=== PATIENT | female | born 1975 | race Caucasian/White ===

== ENCOUNTER 2019-11-24 11:18 | Outpatient (CLI) | payer OTHER, SELFPAY ==
[2019-11-24 22:08] LABS: SARS-CoV-2 RNA PCR Negative
== END 2019-11-24 11:19 | disposition home or self-care (01) ==
LOC: CHSLAB 11:19
PROVIDERS: PCP Internal Medicine; Visit Provider Internal Medicine
DX: Z20.828 Contact with and (suspected) exposure to other viral communicable diseases (principal)
CPT/HCPCS: 87635; C9803; U0003

== ENCOUNTER 2020-03-15 13:13 | Outpatient (CLI) | payer OTHER, SELFPAY ==
[2020-03-16 03:00] LABS: SARS-CoV-2 RNA PCR Negative
== END 2020-03-15 13:14 | disposition home or self-care (01) ==
PROVIDERS: PCP Internal Medicine; Visit Provider Internal Medicine
DX: Z20.828 Contact with and (suspected) exposure to other viral communicable diseases (principal)
CPT/HCPCS: 87081; 87635; 87880; C9803; U0003

== ENCOUNTER 2020-12-13 10:26 | Outpatient (CLI) | payer OTHER, SELFPAY ==
[2020-12-13 10:41] LABS: Add Urine Microscopic? NO; Appearance Urine Clear (Clear); Basophils Percent Auto 1.3 % (0.0-1.0); Bilirubin Urine Negative (Negative); Blood Urine Negative (Negative); Color Urine Light Yellow (Yellow); Eosinophils Absolute Auto 0.22 K/mm3 (0.02-0.50); Eosinophils Percent Auto 2.9 % (1.0-6.0); Glucose Urine UA Negative (Negative); Hematocrit 40.2 % (35.0-49.0); Hemoglobin 12.7 g/dL (12.0-15.0); Immature Granulocyte Absolute 0.02 K/mm3 (0.00-0.00); Immature Granulocyte Percent A 0.3 % (0.0-0.0); Ketones Urine Negative (Negative); Leukocyte Esterase Ur Negative (Negative); Lymphocytes Absolute Auto 2.11 K/mm3 (1.10-4.50); Lymphocytes Percent Auto 27.8 % (18.0-42.0); Mean Corpuscular HGB Conc 31.6 g/dL (32.0-36.0); Mean Corpuscular Hemoglobin 28.2 pg (27.0-31.0); Mean Corpuscular Volume 89.3 fL (78.0-102.0); Mean Platelet Volume 9.8 fl (9.2-11.8); Monocytes Absolute Auto 0.45 K/mm3 (0.10-0.90); Monocytes Percent Auto 5.9 % (2.0-11.0); Neutrophils Absolute Auto 4.7 K/mm3 (1.7-7.2); Neutrophils Percent Auto 61.8 % (50.0-70.0); Nitrate Urine Negative (Negative); Platelet Count Result 413 K/mm3 (150-420); Protein Urine Negative (Negative); Red Cell Distribution Width 13.2 % (11.6-14.4); Specific Grav Ur >= 1.030 (1.010-1.020); Urobilinogen Urine 0.2 mg/dL (0.2-1.0); White Blood Count 7.6 K/mm3 (4.8-10.8)
[2020-12-13 11:35] LABS: Alanine Aminotransferase 21 U/L (14-59); Albumin Level 3.2 g/dL (3.4-5.0); Alkaline Phosphatase 80 U/L (46-116); Anion Gap 8 mmol/L (8-16); Aspartate Amino Transferase < 10 U/L (15-37); Bilirubin,Total 0.5 mg/dL (0.00-1.00); Blood Urea Nitrogen 13 mg/dL (7-18); CRP < 0.5 mg/dL (0.0-0.9); Calcium 8.6 mg/dL (8.5-10.1); Carbon Dioxide 27 mmol/L (21-32); Chloride 107 mmol/L (98-108); Cholesterol 213 mg/dL (0-200); Estimated Glomerular Filt Rate > 60; Glucose 103 mg/dL (70-99); HDL Direct 33 mg/dL (40-60); LDL Cholesterol Calculated 147 mg/dL (<130); Osmolality Calculated 294 mOsm/kg (285-295); Potassium 4.3 mmol/L (3.5-5.1); Sodium 142 mmol/L (136-145); Thyroid Stimulating Hormone 0.37 uIU/mL (0.36-3.74); Total Protein 6.4 g/dL (6.4-8.2); Triglycerides 163 mg/dL (0-150)
[2020-12-16 05:19] LABS: FSH 21.2 mIU/mL (***); LH 13.5 mIU/mL (***)
[2020-12-20 22:28] LABS: Estrogen 203.5 pg/mL
== END 2020-12-13 10:27 | disposition home or self-care (01) ==
LOC: CHSLAB 10:28
PROVIDERS: PCP Internal Medicine; Visit Provider Internal Medicine
DX: Z00.00 Encounter for general adult medical examination without abnormal findings (principal); E03.9 Hypothyroidism, unspecified; N95.1 Menopausal and female climacteric states
CPT/HCPCS: 36415; 80053; 80061; 81003; 82672; 83001; 83002; 84443; 85025; 86140

== ENCOUNTER 2020-12-20 10:54 | Outpatient (CLI) | payer OTHER, SELFPAY ==
[2020-12-20 12:12] LABS: SARS-CoV-2 RNA PCR Positive (Negative)
== END 2020-12-20 10:55 | disposition home or self-care (01) ==
LOC: CHSLAB 10:56
PROVIDERS: PCP Internal Medicine; Visit Provider Internal Medicine
DX: U07.1 COVID-19 (principal); R06.02 Shortness of breath; R05 Cough
CPT/HCPCS: C9803; U0003; U0005

== ENCOUNTER 2021-05-17 12:08 | Outpatient (CLI) | payer OTHER, SELFPAY ==
--- NOTE | ~2021-05-17 | XR_ITS ---
EXAMINATION: XR lumbar spine 2-3V EXAM DATE: 05/17/2021 12:32 INDICATION: Chronic back pain radiating down right leg. TECHNIQUE: Lumber spine frontal, lateral, lateral L5-S1 projections for interpretation. Comparison is made to prior examination from 2019. FINDINGS: There are cholecystectomy clips. Small endplate osteophyte at the L4 superior endplate. Th ere are no acute fractures identified. There is mild lumbar facet arthropathy. The vertebral bodies are aligned in the AP dimension. Vertebral body and disc heights are well-maintained. Sacrum, sacroi liac joints, sacral arcuate lines are intact. Paraspinal soft tissue is unremarkable. IMPRESSION: Mild lumbar facet arthropathy. Reviewed, dictated and finalized at location A. ETICIAN PERMANENT MAKEUP ARTIST
== END 2021-05-17 12:09 | disposition home or self-care (01) ==
LOC: CHSIMG 12:09
PROVIDERS: PCP Internal Medicine; Visit Provider Internal Medicine
DX: M54.9 Dorsalgia, unspecified (principal)
CPT/HCPCS: 72100

== ENCOUNTER 2021-10-19 15:10 | Outpatient (CLI) | payer OTHER, SELFPAY ==
--- NOTE | ~2021-10-19 | XR_ITS ---
XR chest 2V DATE: 10/19/2021 15:42 INDICATION: Dyspnea. Posterior chest pain for 3 days. TECHNIQUE: PA and lateral views COMPARISON: 09/02/2015 2 view chest FINDINGS: Normal heart size. No hilar or mediastinal enlargement. No pulmonary infiltrate or consolidation, pleural effusion or pulmonary vascular congestion or pneumo thorax. Status post cholecystectomy. Included skeletal structures are unremarkable. IMPRESSION: No active cardiac pulmonary disease Status post cholecystectomy Reviewed, dictated and finalized at location A.
[2021-10-19 15:26] LABS: Basophils Absolute Auto 0.12 K/mm3 (0.00-0.10); Basophils Percent Auto 1.3 % (0.0-1.0); Eosinophils Absolute Auto 0.23 K/mm3 (0.02-0.50); Eosinophils Percent Auto 2.4 % (1.0-6.0); Hematocrit 41.5 % (35.0-49.0); Hemoglobin 13.5 g/dL (12.0-15.0); Immature Granulocyte Absolute 0.04 K/mm3 (0.00-0.00); Immature Granulocyte Percent A 0.4 % (0.0-0.0); Lymphocytes Absolute Auto 2.57 K/mm3 (1.10-4.50); Lymphocytes Percent Auto 27.3 % (18.0-42.0); Mean Corpuscular HGB Conc 32.5 g/dL (32.0-36.0); Mean Corpuscular Hemoglobin 29.5 pg (27.0-31.0); Mean Corpuscular Volume 90.6 fL (78.0-102.0); Mean Platelet Volume 10.2 fl (9.2-11.8); Monocytes Percent Auto 5.3 % (2.0-11.0); Neutrophils Percent Auto 63.3 % (50.0-70.0); Platelet Count Result 430 K/mm3 (150-420); Red Blood Count 4.58 M/mm3 (4.20-5.40); Red Cell Distribution Width 13.5 % (11.6-14.4); White Blood Count 9.4 K/mm3 (4.8-10.8)
[2021-10-19 15:35] LABS: Add Urine Microscopic? NO; Appearance Urine Clear (Clear); Bilirubin Urine Negative (Negative); Blood Urine Negative (Negative); Color Urine Yellow (Yellow); Glucose Urine UA Negative (Negative); Ketones Urine Negative (Negative); Leukocyte Esterase Ur Negative (Negative); Nitrate Urine Negative (Negative); Protein Urine Negative (Negative); Specific Grav Ur >= 1.030 (1.010-1.020); Urobilinogen Urine 0.2 mg/dL (0.2-1.0); pH Urine 5.5 (5.0-8.0)
[2021-10-19 15:52] LABS: Alanine Aminotransferase 19 U/L (14-59); Albumin Level 3.2 g/dL (3.4-5.0); Alkaline Phosphatase 93 U/L (46-116); Anion Gap 6 mmol/L (8-16); Aspartate Amino Transferase 13 U/L (15-37); Bilirubin,Total 0.3 mg/dL (0.00-1.00); Blood Urea Nitrogen 15 mg/dL (7-18); CRP < 0.5 mg/dL (0.0-0.9); Calcium 8.4 mg/dL (8.5-10.1); Carbon Dioxide 27 mmol/L (21-32); Chloride 107 mmol/L (98-108); Creatine Kinase 36 U/L (26-192); Glucose 119 mg/dL (70-99); NT Pro B Type Natriuretic Pept 287 pg/mL (0-125); Osmolality Calculated 291 mOsm/kg (285-295); Sodium 140 mmol/L (136-145); Total Protein 7.2 g/dL (6.4-8.2); Troponin I 5.9 ng/L (0.00-60.4)
[2021-10-19 15:55] LABS: Estimated Glomerular Filt Rate > 60
[2021-10-19 15:59] LABS: D Dimer 0.24 mg/L (0.19-0.50)
[2021-10-19 16:54] LABS: Creatine Kinase MB < 0.50 ng/mL (0.00-5.00)
== END 2021-10-19 15:11 | disposition home or self-care (01) ==
LOC: CHSLAB 15:12
PROVIDERS: PCP Internal Medicine; Visit Provider Internal Medicine
DX: R06.00 Dyspnea, unspecified (principal); R07.9 Chest pain, unspecified
CPT/HCPCS: 36415; 71046; 80053; 81003; 82550; 82553; 83880; 84484; 85025; 85380; 86140

== ENCOUNTER 2021-10-26 09:44 | Outpatient (CLI) | payer OTHER, SELFPAY ==
--- NOTE | 2021-10-26 10:18 | ECG_ITS ---
Measurements Intervals [place] Rate: 57 P: 41 [place]: 140 QRS: 34 QRSD: 97 T: 61 QT: 412 QTc: 404 Interpretive Statements SINUS BRADYCARDIA LOW QRS VOLTAGE IN PRECORDIAL LEADS [QRS DEFLECTION < 1.0 mV IN CHEST LEADS] NO PREVIOUS ECG AVAILABLE FOR COMPARISON Electronically Signed On 10-26-2021 14:51:32 CDT by Julio Law M.D.
[2021-10-26 10:38] LABS: Alanine Aminotransferase 13 U/L (14-59); Albumin Level 3.2 g/dL (3.4-5.0); Alkaline Phosphatase 91 U/L (46-116); Anion Gap 4 mmol/L (8-16); Aspartate Amino Transferase 12 U/L (15-37); Bilirubin,Total 0.5 mg/dL (0.00-1.00); Blood Urea Nitrogen 18 mg/dL (7-18); Calcium 9.1 mg/dL (8.5-10.1); Carbon Dioxide 28 mmol/L (21-32); Chloride 105 mmol/L (98-108); Estimated Glomerular Filt Rate > 60; Glucose 97 mg/dL (70-99); NT Pro B Type Natriuretic Pept 59 pg/mL (0-125); Osmolality Calculated 285 mOsm/kg (285-295); Potassium 4.5 mmol/L (3.5-5.1); Sodium 137 mmol/L (136-145); Total Protein 7.2 g/dL (6.4-8.2)
[2021-10-30 15:58] LABS: Thyroid Stimulating Hormone 7.09 uIU/mL (0.36-3.74)
== END 2021-10-26 09:45 | disposition home or self-care (01) ==
LOC: CHSLAB 09:46
PROVIDERS: PCP Internal Medicine; Visit Provider Internal Medicine
DX: R06.00 Dyspnea, unspecified (principal); R07.9 Chest pain, unspecified; R53.83 Other fatigue
CPT/HCPCS: 36415; 80053; 83880; 84443; 93005

== ENCOUNTER 2022-06-14 08:59 | Outpatient (CLI) | payer OTHER, SELFPAY ==
--- NOTE | 2022-06-14 09:17 | ECHO_ITS ---
Patient Info Name: Aniya Sanchez Age: 46 years : 1975 Gender: Female Ht: 63 in Wt: 300 lbs BSA: 2.55 m2 HR: 55 bpm BP: 93 / 76 mmHg Technical Quality: Fair Exam Date: 06/14/2022 9:35 AM Exam Location: [facility] Pulmonary Patient Status: Outpatient Admit Date: 06/14/2022 Staff Ordering Physician: Farooq Foy DO Relay Tester Helper: Susana Adam RDCS Attending Provider: Farooq Foy DO Referring Physician: Law RAZO; Exam Type: CA echo dop color flow w con Study Info Indications R06.09 - Other forms of dyspnea Contrast/Agitated Saline Contrast/Ag. Saline: Definity Amount: 3.00 ml Administered By: Hailey Gill [facility] IV Access: Antecubital Space and Right Site Condition: Site dressing applied, IV removed and No extravasation Summary 1. Left ventricular chamber dimension is mildly enlarged. 2. Definity contrast administered improved wall motion interpretation. 3. Left ventricular systolic function is normal, estimated at 60-65%. 4. The left ventricular diastolic function is normal. 5. E/e' 8 is minimally elevated. 6. Global longitudinal strain is normal at -17.6%. 7. Left atrial chamber dimension is mildly enlarged. 8. There is trace mitral valve regurgitation. 9. No pulmonary hypertension, estimated pulmonary arterial systolic pressure is 26 mmHg. Left Ventricle E/e' 8 is minimally elevated. Global longitudinal strain is normal at -17.6%. Definity contrast administered improved wall motion interpretation. Left ventricular chamber dimension is mildly enlarged. Left ventricular systolic function is normal, estimated at 60-65%. The left ventricular diastolic function is normal. Right Ventricle Right ventricular systolic function is normal and with normal TAPSE 2.4 cm. Right ventricular chamber dimension is normal. Left Atria Left atrial chamber dimension is mildly enlarged. Right Atria Right atrial chamber dimension is normal. Aortic Valve The aortic valve is trileaflet. There is no aortic valve stenosis. There is no aortic valve regurgitation. Pulmonic Valve There is no pulmonic regurgitation. Mitral Valve There is no mitral valve stenosis. There is trace mitral valve regurgitation. Tricuspid Valve There is no tricuspid valve regurgitation. No pulmonary hypertension, estimated pulmonary arterial systolic pressure is 26 mmHg. Pericardium/Pleural There is no pericardial effusion. Inferior Vena Cava Normal inferior vena cava with >50% collapse upon inspiration consistent with normal right atrial pressure, 5 mmHg. Aorta The aortic root size at the sinus of Valsalva is normal. Left Ventricular Outflow Tract Name Value Normal LVOT 2D LVOT Diameter 1.93 cm LVOT Doppler LVOT Peak Gradient 5 mmHg LVOT Mean Gradient 3 mmHg LVOT VTI 26.91 cm LVOT VTI/AV VTI Ratio 0.85 LVOT Stroke Volume 78.60 ml LVOT CO 4.56 l/min LVOT CI
--- NOTE | 2022-06-14 09:17 | EST_ITS ---
Patient Info Name: Aniya Sanchez Age: 46 years : 1975 Gender: Female Ht: 63 in Wt: 300 lbs BSA: 2.55 m2 HR: 48 bpm BP: 119 / 43 mmHg Heart Rhythm: Sinus Rhythm Exam Date: 06/14/2022 10:41 AM Exam Location: [facility] Stress Patient Status: Outpatient Admit Date: 06/14/2022 Staff Ordering Physician: Farooq Foy DO Attending Provider: Farooq Foy DO Exercise Technologist: Samaria Mayberry CT Exercise Physician: Farooq Foy DO Exam Type: CA stress test treadmill Study Info Indications R06.02 - Shortness of breath R07.9 - Chest pain, unspecified An exercise stress test was performed. Summary 1. 1. Negative U[place]ano exercise stress test for ischemic ST changes by ECG criteria. 2. 2. Reduced functional capacity, achieving 6 METs of workload. 3. 3. Appropriate HR response to exercise. 4. 4. Appropriate HR recovery at 1 minute post exercise. 5. 5. No imaging with stress testing. 6. 6. Patient informed of the above results. Protocol: [place] Stress ECG Details Stage: REST Duration (min): 1 min : 21 sec Speed (mph): 0.0 Grade (%): 0 HR (bpm): 50 SBP (mmHg): 119 DBP (mmHg): 43 METS: --- Stage: REST Duration (min): 14 min : 35 sec Speed (mph): 0.0 Grade (%): 0 HR (bpm): 55 SBP (mmHg): 119 DBP (mmHg): 43 METS: --- Stage: STAGE 1 Duration (min): 1 min : 0 sec Speed (mph): 1.7 Grade (%): 10 HR (bpm): 103 SBP (mmHg): 119 DBP (mmHg): 43 METS: --- Stage: STAGE 1 Duration (min): 2 min : 0 sec Speed (mph): 1.7 Grade (%): 10 HR (bpm): 120 SBP (mmHg): 119 DBP (mmHg): 43 METS: --- Stage: STAGE 1 Duration (min): 3 min : 0 sec Speed (mph): 1.7 Grade (%): 10 HR (bpm): 130 SBP (mmHg): 150 DBP (mmHg): 81 METS: --- Stage: STAGE 2 Duration (min): 0 min : 57 sec Speed (mph): 2.5 Grade (%): 12 HR (bpm): 149 SBP (mmHg): 150 DBP (mmHg): 81 METS: --- Stage: RECOVERY Duration (min): 0 min : 2 sec Speed (mph): 1.5 Grade (%): 0 HR (bpm): 152 SBP (mmHg): 150 DBP (mmHg): 81 METS: --- Stage: RECOVERY Duration (min): 1 min : 2 sec Speed (mph): 0.0 Grade (%): 0 HR (bpm): 112 SBP (mmHg): 150 DBP (mmHg): 81 METS: --- Stage: RECOVERY Duration (min): 2 min : 2 sec Speed (mph): 0.0 Grade (%): 0 HR (bpm): 93 SBP (mmHg): 150 DBP (mmHg): 81 METS: --- Stage: RECOVERY Duration (min): 3 min : 2 sec Speed (mph): 0.0 Grade (%): 0 HR (bpm): 74 SBP (mmHg): 133 DBP (mmHg): 80 METS: --- Stage: RECOVERY Duration (min): 3 min : 11 sec Speed (mph): 0.0 Grade (%): 0 HR (bpm): 75 SBP (mmHg): 133 DBP (mmHg): 80 METS: --- Rest HR: 55 bpm Peak HR: 152 bpm Rest Sys BP: 119 mmHg Peak Sys BP: 150 mmHg Max Pred HR: 172 bpm % Max Pred HR: 88 % Target HR: 146 bpm Max RPP: 22,800 bpm*mmHg Yusuf Score:
[2022-06-14] MEDS: PERFLUTREN LIPID MICROSPHERES 1.5 ML VIAL DILUTED TO 10 ML TOTAL VOLUME IV PUSH (10:15)
== END 2022-06-14 09:00 | disposition home or self-care (01) ==
PROVIDERS: PCP Internal Medicine; Visit Provider Internal Medicine Cardiovascular Disease
DX: R07.9 Chest pain, unspecified (principal); R06.09 Other forms of dyspnea
CPT/HCPCS: 93017; C8929; Q9957

== ENCOUNTER 2022-12-15 09:29 | Emergency (ER) | payer OTHER, SELFPAY ==
[2022-12-15 09:29] VITALS: BP 130/87; PULSE 68; RESP 17; TEMP 36.6; O2SAT 97
[2022-12-15 09:34] VITALS: BP 130/81; PULSE 68; RESP 20; TEMP 36.6; O2SAT 97
--- NOTE | 2022-12-15 09:36 | ED.GENADULT ---
HPI - General Adult General Chief complaint: Unspecified Stated complaint: rash Time Seen by Provider: 12/15/22 09:35 Source: patient Mode of arrival: ambulatory Limitations: no limitations History of Present Illness HPI narrative: patient is a 47-year-old female with a rash. Patient was working in the yard and realized that she got into some poison ada. She has generalized itching and rash on the chest in arms and now on the face. Onset (ago): day(s) (1) Location: face, chest and upper extremity Radiation: non-radiation Severity: mild and moderate Quality: burning and sharp Pain Consistency: constant Relieving factors: none Exacerbating factors: none Associated symptoms: denies other symptoms Treatments prior to arrival: none Related Data Home Medications Medication Instructions Recorded Confirmed albuterol sulfate 90 mcg/actuation 2 inh inhalation Q6H 01/07/22 12/15/22 breath activated powder inhaler,sensor ibuprofen 200 mg capsule 200 mg PO Q6H PRN Pain 01/07/22 12/15/22 levothyroxine 150 mcg capsule 150 mcg PO DAILY 01/07/22 12/15/22 cholecalciferol (vitamin D3) 10 10 mcg PO DAILY 06/17/22 12/15/22 mcg (400 unit) capsule Allergies Allergy/AdvReac Type Severity Reaction Status Date / Time doxycycline Allergy Mild Other Verified 06/17/22 15:35 duloxetine Allergy Mild Nausea Verified 06/17/22 15:35 pregabalin [From Lyrica] Allergy Mild Other Verified 06/17/22 15:35 sulfamethoxazole Allergy Mild Other Verified 06/17/22 15:35 [From Bactrim] topiramate Allergy Mild Dizziness Verified 06/17/22 15:35 trimethoprim [From Bactrim] Allergy Mild Other Verified 06/17/22 15:35 Review of Systems Review of Systems: All systems reviewed & are unremarkable except as noted in HPI and below Constitutional: Constitutional: Reports no additional constitutional complaints Eyes: Eyes: Reports no additional eye complaints ENT: Reports system reviewed and no additional complaints, except as documented Cardiovascular: Cardiovascular: Reports no additional cardiovascular complaints Respiratory: Respiratory: Reports no additional respiratory complaints Gastrointestinal: Gastrointestinal: Reports no additional gastrointestinal complaints Genitourinary: Genitourinary: Reports no additional female genitourinary complaints Musculoskeletal: Musculoskeletal: Reports no additional musculoskeletal complaints Integumentary/Breasts: Skin/Breast: Reports system reviewed and no additional complaints, except as docu Neurologic: Reports system reviewed and no additional complaints, except as documented Psychiatric: Psychiatric: Reports no additional psychiatric complaints Endocrine: Endocrine: Reports no additional endocrine complaints Hematologic/Lymphatic: Hematologic/Lymphatic: Reports no additional hematologic/lymphatic complaints Allergic/Immunologic: Allergic/Immunologic: Reports no additional allergic/immunologic complaints PMFSH Past Medical History Medical History Hypothyroidism (08/06/12) Social History Social History Smoking packs per day: 1 Smoking cigarettes per day: 20.0 Years smoked: 31 Smoking pack-years: 31.00 Smoking status: Former smoker Smoking end date: 07/27/19 Exam Const: General: cooperative, healthy appearing and comfortable HENMT: Head: normal to inspection and No palpable skull fracture present Ears: hearing grossly normal bilaterally Face/Nose/Sinus: Normal external nose present Face and sinus: normal facial exam Eyes: General: appearance normal, both eyes and all related structures Visual Bustos: normal visual bustos by confrontation Alignment and Position: alignment normal Neck: Neck: normal visual inspection, full ROM and no lymphadenopathy Chest: Chest palpation & inspection: normal inspection of the chest and normal palpation of entire chest wall Resp:
[2022-12-15] MEDS: methylPREDNISolone SOD SUCC 125 MG VIAL IM (09:48)
--- NOTE | 2022-12-15 10:09 | ED.GENADULT ---
HPI - General Adult General Chief complaint: Skin/Abscess/Foreign Body Stated complaint: rash Time Seen by Provider: 12/15/22 09:35 Source: patient Mode of arrival: ambulatory Limitations: no limitations History of Present Illness Location: face, chest and upper extremity Quality: burning and sharp Relieving factors: none Exacerbating factors: none Associated symptoms: denies other symptoms Treatments prior to arrival: none Related Data Home Medications Medication Instructions Recorded Confirmed albuterol sulfate 90 mcg/actuation 2 inh inhalation Q6H 01/07/22 12/15/22 breath activated powder inhaler,sensor ibuprofen 200 mg capsule 200 mg PO Q6H PRN Pain 01/07/22 12/15/22 levothyroxine 150 mcg capsule 150 mcg PO DAILY 01/07/22 12/15/22 cholecalciferol (vitamin D3) 10 10 mcg PO DAILY 06/17/22 12/15/22 mcg (400 unit) capsule Allergies Allergy/AdvReac Type Severity Reaction Status Date / Time doxycycline Allergy Mild Other Verified 06/17/22 15:35 duloxetine Allergy Mild Nausea Verified 06/17/22 15:35 pregabalin [From Lyrica] Allergy Mild Other Verified 06/17/22 15:35 sulfamethoxazole Allergy Mild Other Verified 06/17/22 15:35 [From Bactrim] topiramate Allergy Mild Dizziness Verified 06/17/22 15:35 trimethoprim [From Bactrim] Allergy Mild Other Verified 06/17/22 15:35 PMFSH Past Medical History Medical History Hypothyroidism (08/06/12) Social History Social History Smoking packs per day: 1 Smoking cigarettes per day: 20.0 Years smoked: 31 Smoking pack-years: 31.00 Smoking status: Former smoker Smoking end date: 07/27/19 Course Vital Signs Vital signs: Vital Signs Temperature 36.6 C 12/15/22 09:34 Pulse Rate 68 12/15/22 09:34 Respiratory Rate 20 12/15/22 09:34 Blood Pressure 130/81 12/15/22 09:34 Pulse Oximetry 97 12/15/22 09:34 Oxygen Delivery Room Air 12/15/22 09:34 Temperature 36.6 C 12/15/22 09:34 Pulse Rate 68 12/15/22 09:34 Respiratory Rate 20 12/15/22 09:34 Blood Pressure 130/81 12/15/22 09:34 Pulse Oximetry 97 12/15/22 09:34 Oxygen Delivery Room Air 12/15/22 09:34 Medical Decision Making Vital Signs Vital Signs: Vital Signs Temperature 36.6 C 12/15/22 09:34 Pulse Rate 68 12/15/22 09:34 Respiratory Rate 20 12/15/22 09:34 Blood Pressure 130/81 12/15/22 09:34 Pulse Oximetry 97 12/15/22 09:34 Oxygen Delivery Room Air 12/15/22 09:34 Temperature 36.6 C 12/15/22 09:34 Pulse Rate 68 12/15/22 09:34 Respiratory Rate 20 12/15/22 09:34 Blood Pressure 130/81 12/15/22 09:34 Pulse Oximetry 97 12/15/22 09:34 Oxygen Delivery Room Air 12/15/22 09:34 Discharge Plan Discharge Clinical Impression: Poison latonya dermatitis Patient Disposition: Home, Self-Care Condition: Stable Instructions: Poison Latonya (ED) Prescriptions: New prednisone 20 mg tablet 20 mg PO DAILY Qty: 3 0RF No Action ibuprofen 200 mg capsule 200 mg PO Q6H PRN (Reason: Pain) levothyroxine 150 mcg capsule 150 mcg PO DAILY albuterol sulfate 90 mcg/actuation aero powdr breath act w/sensor 2 inh inhalation Q6H cholecalciferol (vitamin D3) 10 mcg (400 unit) capsule 10 mcg PO DAILY Follow-up/Referrals: Greyson Etienne MD [Primary Care Provider] - Time of Disposition: 10:06
[2022-12-15 10:33] VITALS: BP 128/83; PULSE 71; RESP 18; TEMP 36.4; O2SAT 100
== END 2022-12-15 10:33 | disposition home or self-care (01) ==
PROVIDERS: Emergency Provider Emergency Medicine; PCP Internal Medicine
DX: L23.7 Allergic contact dermatitis due to plants, except food (principal); E03.9 Hypothyroidism, unspecified; Z79.1 Long term (current) use of non-steroidal anti-inflammatories (NSAID); Z87.891 Personal history of nicotine dependence
CPT/HCPCS: 96372; 99283; J2930

== ENCOUNTER 2022-12-20 07:28 | Emergency (ER) | payer OTHER, SELFPAY ==
[2022-12-20 07:28] VITALS: BP 138/71; PULSE 70; RESP 18; TEMP 36.5; O2SAT 98
[2022-12-20 07:41] VITALS: BP 138/71; PULSE 70; RESP 18; TEMP 36.5; O2SAT 98
--- NOTE | 2022-12-20 07:49 | ED.GENADULT ---
HPI - General Adult General Chief complaint: Upper Respiratory Infection Stated complaint: sore throat Time Seen by Provider: 12/20/22 07:40 Source: patient Mode of arrival: ambulatory Limitations: no limitations History of Present Illness HPI narrative: complains of a sore throat that started 2 days ago. She took Augmentin 875 twice yesterday and then ran out. She has been using Chloraseptic for blood sugars Tylenol and ibuprofen. She has had a little bit of a cough but not really much of 1 at all. Has had some nausea. Denies vomiting. She has a contact dermatitis was seen last week was given prednisone shot 3 pills got better but it still persists. Walking talking seeing hearing okay hurts to swallow she has pain in her right ear and throat. Denies any other pain. Denies any other complaints Related Data Home Medications Medication Instructions Recorded Confirmed ibuprofen 200 mg capsule 200 mg PO Q6H PRN Pain 01/07/22 12/20/22 levothyroxine 200 mcg tablet 200 mcg PO DAILY 12/20/22 12/20/22 Allergies Allergy/AdvReac Type Severity Reaction Status Date / Time doxycycline Allergy Mild Other Verified 12/20/22 07:36 duloxetine Allergy Mild Nausea Verified 12/20/22 07:36 pregabalin [From Lyrica] Allergy Mild Other Verified 12/20/22 07:36 sulfamethoxazole Allergy Mild Other Verified 12/20/22 07:36 [From Bactrim] topiramate Allergy Mild Dizziness Verified 12/20/22 07:36 trimethoprim [From Bactrim] Allergy Mild Other Verified 12/20/22 07:36 Review of Systems Constitutional: Constitutional: Reports fatigue, Denies fever(s) and Denies weakness Eyes: Eyes: Reports no additional eye complaints ENT: Reports as per HPI Cardiovascular: Cardiovascular: Denies chest pain Respiratory: Respiratory: Reports cough Gastrointestinal: Gastrointestinal: Reports no additional gastrointestinal complaints Genitourinary: Genitourinary: Reports no additional female genitourinary complaints Musculoskeletal: Musculoskeletal: Reports no additional musculoskeletal complaints COUNTS INCLUDE 234 BEDS AT THE [facility] Past Medical History Medical History Hypothyroidism (08/06/12) Social History Social History Smoking packs per day: 1 Smoking cigarettes per day: 20.0 Years smoked: 31 Smoking pack-years: 31.00 Smoking status: Former smoker Smoking end date: 07/27/19 Exam Narrative: obese white female mild distress TMs are normal, oropharynx shows exudates the posterior pharynx. Positive anterior lymphadenopathy. Lungs are clear heart is regular rate and rhythm without murmurs gallops rubs abdomen is soft and nontender back is nontender. Extremities no cyanosis clubbing or edema. Skin macular papular rash diffuse erythematous neurological she is alert and oriented motor and sensory grossly intact Course Vital Signs Vital signs: Vital Signs Temperature 36.5 C 12/20/22 07:28 Pulse Rate 70 12/20/22 07:28 Respiratory Rate 18 12/20/22 07:28 Blood Pressure 138/71 12/20/22 07:28 Pulse Oximetry 98 12/20/22 07:28 Oxygen Delivery Room Air 12/20/22 07:28 Temperature 36.5 C 12/20/22 07:41 Pulse Rate 70 12/20/22 07:41 Respiratory Rate 18 12/20/22 07:41 Blood Pressure 138/71 12/20/22 07:41 Pulse Oximetry 98 12/20/22 07:41 Oxygen Delivery Room Air 12/20/22 07:41 Medical Decision Making MDM Narrative Medical decision making narrative: patient was placed in room 1 history and physical were performed she was given Toradol 30 mg IM. Independent Historian: ? Patient Differential Dx includes but not limited to: strep mononucleosis viral pharyngitis Medications were Reviewed:? ? medications reviewed Medications treatments given: Toradol 30 IM Independently Interpreted by me:? External Source Review:?? office records reviewed Echo/MUGA:: 06/14/22 Echo: EF 60-65%, mild LAE, trace MR
[2022-12-20] MEDS: KETOROLAC 30 MG/ML VIAL (*BKC) IM (07:59)
[2022-12-20 08:06] VITALS: BP 138/71; PULSE 70; RESP 18; TEMP 36.5; O2SAT 98
== END 2022-12-20 08:06 | disposition home or self-care (01) ==
LOC: CHSED 08:00
PROVIDERS: Emergency Provider Emergency Medicine; PCP Internal Medicine
DX: J02.9 Acute pharyngitis, unspecified (principal); E03.9 Hypothyroidism, unspecified; Z87.891 Personal history of nicotine dependence; Z79.1 Long term (current) use of non-steroidal anti-inflammatories (NSAID)
CPT/HCPCS: 96372; 99283; J1885

== ENCOUNTER 2024-06-09 14:05 | Outpatient (CLI) | payer OTHER, SELFPAY ==
--- OUTSIDE RECORDS SUMMARY | 2024-06-09 14:56 | XMS_ITS | Clinical Summary ---
Author Organization [facility] Address [address] [place] [address]. [place], [place] [id number] [place] [id number] Care Team Providers Care Port Engineer Name Role Phone Unavailable Primary Care Provider Unavailabl e Social History Tobacco Use Types Packs/Day Years Used Date Smoking Tobacco: Never Assessed Comments Unknown Sex and Gender Information Value Date Recorded Sex Assigned at Not on file Legal Sex Female 8:37 PM CDT Gender Identity Not on file Sexual Orientation Not on file Last Filed Vital Signs Vital Sign Reading Time Taken Comments Blood Pressure 111/75 05/02/2015 3:44 PM RAKE OPERATOR Pulse - - Temperature - - Respiratory Rate - - Oxygen Saturation - - Inhaled Oxygen Concentration - - Weight 122.5 kg (270 lb) 05/02/2015 3:44 PM RAKE OPERATOR Height 154.9 cm (5' 1 ) 05/02/2015 3:44 PM RAKE OPERATOR Body Mass Index 51.02 05/02/2015 3:44 PM RAKE OPERATOR Plan of Treatment Health Maintenance Due Date Last Done Comments Cervical Cancer Screening Pa p Smear (Age 30 to 64) Every 3 Years 1975 Colorectal Cancer Screening Colonoscopy (10 Years) 1975 Annual Physical 1976 Hepatitis C 10/09/1991 DTaP, Tdap and Td Vaccines ( 1 - Tdap) 1992 Hepatitis B Vaccines (1 of 3 - 19+ 3-dose series) 1992 Cervical Cancer Screening Pa p with HPV Testing (Age 30 to 64) Every 5 Years 10/09/2003 Cervical Cancer Screening with HPV 10/09/2003 Mammogram Screening 2013 Zoster Vaccines (1 of 2) 10/09/2023 COVID-19 Vaccine ( - 2023-2 5 season) 2024 Influenza Adult (#1) 2024 Meningococcal B Vaccine Aged Out No l onger eligible based on patient's age to complete this topic Meningococcal Vaccine Aged Out No harpreet fabi eligible based on patient's age to complete this topic Pneumococcal Vaccine: Pediat rics (0 to 5 Years) and At-Risk Patients (6 to 64 Years) Aged Out No longer eligible b ased on patient's age to complete this topic RSV Immunizations Under 20 Months Aged Out No longer eligible based on patient's age to complete this topic
== END 2024-06-09 14:06 | disposition home or self-care (01) ==
PROVIDERS: PCP Internal Medicine; Visit Provider Internal Medicine
DX: Z12.31 Encounter for screening mammogram for malignant neoplasm of breast (principal)
CPT/HCPCS: 99199

== ENCOUNTER 2024-10-05 14:43 | Emergency (ER) | payer OTHER, SELFPAY ==
--- NOTE | ~2024-10-05 | XR_ITS ---
XR toe 1st LT min 2V Ordering provider: Ollie Edwards MD History: . Dropped log on toe yesterday, Bruising/Swelling, IP Joint . Comparison: December 03, 2012 FINDINGS: BONES: Longitudinal fractures seen in the distal phalanx of the left big toe extending to the joint s pace. No significant displacement seen.. JOINT SPACES: Normal. SOFT TISSUES: Soft tissue swelling seen over the distal phalanx of the left big toe. IMPRESSION: Fracture of distal phalanx of the left big toe. Reviewed, dictated and finalized at location A.
[2024-10-05 14:44] VITALS: BP 132/75; PULSE 85; RESP 20; TEMP 36.6; O2SAT 99
--- NOTE | 2024-10-05 14:45 | ED_ITS ---
HPI - Extremity Injury (Lower) General Chief Complaint: Extremity Injury, Lower Stated Complaint: toe pain Time Seen by Provider: 10/05/24 14:45 Source: patient Mode of arrival: ambulatory Limitations: no limitations History of Present Illness HPI Narrative: 48 years old white female came with left big toe injury yesterday. Patient reports a large log fell/rolled on top of her big toe. No other injuries. Related Data Home Medications ?Medication ?Instructions ?Recorded ?Confirmed ?Last Taken ?Type ibuprofen 200 mg capsule 200 mg PO Q6H PRN Pain 01/07/22 12/20/22 Unknown History levothyroxine 200 mcg tablet 200 mcg PO DAILY 12/20/22 12/20/22 Unknown History Allergies Allergy/AdvReac Type Severity Reaction Status Date / Time doxycycline Allergy Mild Other Verified 12/20/22 07:36 duloxetine Allergy Mild Nausea Verified 12/20/22 07:36 pregabalin (From Lyrica) Allergy Mild Other Verified 12/20/22 07:36 sulfamethoxazole (From Allergy Mild Other Verified 12/20/22 07:36 Bactrim) topiramate Allergy Mild Dizziness Verified 12/20/22 07:36 trimethoprim (From Bactrim) Allergy Mild Other Verified 12/20/22 07:36 Review of Systems Review of Systems: All systems reviewed & are unremarkable except as noted in HPI and below PMFSH Past Medical History Medical History Hypothyroidism (08/06/12) Social History Social History Smoking packs per day: 1 Smoking cigarettes per day: 20.0 Years smoked: 31 Smoking pack-years: 31.00 Smoking status: Former smoker Smoking end date: 07/27/19 Exam Narrative: General appearance: Well-developed, well-nourished Skin: Normal color Head: Normocephalic, nontraumatic Vascular: Normal peripheral pulses, normal capillary refill. Musculoskeletal: Left big toe exam reveals diffuse swelling, bruises, 2 mm laceration dorsally, diffusely tender, limited range of motion Neurologic: Alert and oriented ?3, [employer] is normal as tested, no gross motor deficit Course Vital Signs Vital signs: Vital Signs Temperature 36.6 C 10/05/24 14:44 Pulse Rate 85 10/05/24 14:44 Respiratory Rate 20 10/05/24 14:44 Blood Pressure 132/75 10/05/24 14:44 Pulse Oximetry 99 10/05/24 14:44 Oxygen Delivery Room Air 10/05/24 14:44 Temperature 36.6 C 10/05/24 14:44 Pulse Rate 85 10/05/24 14:44 Respiratory Rate 20 10/05/24 14:44 Blood Pressure 132/75 10/05/24 14:44 Pulse Oximetry 99 10/05/24 14:44 Oxygen Delivery Room Air 10/05/24 14:44 MDM - Extremity Injury (Lower) MDM Narrative Medical decision making narrative: differential diagnosis include fracture versus contusion Patient received a tetanus shot X-ray showed fracture distal phalanx Louis-tape, postop shoe, Keflex Follow-up with hoisting pile driving engineer Differential Diagnosis Differential diagnosis: Likely other ( as above) Imaging Data Radiologist's impression: Impressions Toe X-Ray 10/05/24 15:16 IMPRESSION: Fracture of distal phalanx of the left big toe. Critical Care Time Critical Care Time Critical Care Time: No Discharge Plan Discharge Clinical Impression: Fracture of toe of left foot, Laceration Patient Disposition: Home Condition: Stable Instructions: Antibiotic Form, Laceration (DC), Toe Fracture (ED) Additional Instructions: Return if symptoms are worsening , call hoisting pile driving engineer for appointment, take Tylenol , ibuprofen as as needed for aches and pain, continue home medications. keep left foot elevated Patient Language: New Zealander Prescriptions: New cephalexin 500 mg capsule 500 mg PO Q6H 7 Days Qty: 28 0RF No Action levothyroxine 200 mcg tablet 200 mcg PO DAILY amoxicillin-pot clavulanate 875-125 mg tablet 1 tablet PO Q12H 10 Days Qty: 20 0RF prednisone 20 mg tablet 20 mg PO BID 5 Days Qty: 10 0RF ibuprofen 200 mg capsule 200 mg PO Q6H PRN (Reason: Pain) Follow-up/Referrals: Steve Leroy Jr., DPM [Physician] - 10/06/24 Greyson Etienne MD [Primary Care Provider] -
== END 2024-10-05 15:45 | disposition home or self-care (01) ==
PROVIDERS: Emergency Provider Emergency Medicine; PCP Internal Medicine
DX: S92.402A Displaced unspecified fracture of left great toe, initial encounter for closed fracture (principal); E03.9 Hypothyroidism, unspecified; Z87.891 Personal history of nicotine dependence; W22.8XXA Striking against or struck by other objects, initial encounter
CPT/HCPCS: 73660; 99284

== ENCOUNTER 2024-10-20 16:38 | Emergency (ER) | payer OTHER, SELFPAY ==
[2024-10-20 16:44] VITALS: BP 120/82; PULSE 74; RESP 18; TEMP 36.6; O2SAT 95
--- NOTE | 2024-10-20 16:51 | ED.LOWEXIN ---
HPI - Extremity Injury (Lower) General Chief Complaint: Extremity Injury, Lower Stated Complaint: Right Foot Injury Time Seen by Provider: 10/20/24 16:50 Source: patient Mode of arrival: ambulatory Limitations: no limitations History of Present Illness HPI Narrative: 49-year-old female smoker with history of hypothyroidism, recent fracture left leg the toe, presents to the ED with -- right lateral foot abrasion measuring 3 cm. A piece of protruding metal caused the abrasion. -- patient is not up-to-date on tetanus. complaint: foot injury Onset (ago): hour(s) ( 1 hour ago) Injury: Right: foot Place: home Severity: mild Relieving factors: nothing Exacerbating factors: nothing Context: direct blow Other symptoms: none Related Data Home Medications ?Medication ?Instructions ?Recorded ?Confirmed ?Last Taken ?Type ibuprofen 200 mg capsule 200 mg PO Q6H PRN Pain 01/07/22 12/20/22 Unknown History levothyroxine 200 mcg tablet 200 mcg PO DAILY 12/20/22 12/20/22 Unknown History Allergies Allergy/AdvReac Type Severity Reaction Status Date / Time doxycycline Allergy Mild Other Verified 10/20/24 16:41 duloxetine Allergy Mild Nausea Verified 10/20/24 16:41 pregabalin (From Lyrica) Allergy Mild Other Verified 10/20/24 16:41 sulfamethoxazole (From Allergy Mild Other Verified 10/20/24 16:41 Bactrim) topiramate Allergy Mild Dizziness Verified 10/20/24 16:41 trimethoprim (From Bactrim) Allergy Mild Other Verified 10/20/24 16:41 Review of Systems Review of Systems: All systems reviewed & are unremarkable except as noted in HPI and below PMFSH Past Medical History Medical History Hypothyroidism (08/06/12) Social History Social History Smoking packs per day: 1 Smoking cigarettes per day: 20.0 Years smoked: 31 Smoking pack-years: 31.00 Smoking status: Former smoker Smoking end date: 07/27/19 Exam Narrative: Vitals are stable Const: General: no acute distress Nutritional Appearance: well nourished Orientation/consciousness: patient oriented x3 Limitations: no limitations HENMT: Head: normal to inspection Ears: external ears normal Face/Nose/Sinus: Normal external nose present Face and sinus: normal facial exam Mouth: Yes Normal oral and palatal mucosa present Throat: posterior oropharynx normal Eyes: Conjunctivae: conjunctivae normal Pupils: Equal, round and reactive pupils present EOM: EOMs intact bilaterally Direct Ophthalmoscopy: no photophobia Neck: Neck: normal visual inspection and no lymphadenopathy Chest: Chest palpation & inspection: normal inspection of the chest and abnormal inspection of the chest Resp: Effort & Inspection: normal respiratory effort Auscultation: clear to auscultation bilaterally Cardio: Rate: regular rate Rhythm: regular rhythm GI: GI Palp: Yes Soft to palpation Other: no tenderness/rigidity/rebound. : General: Yes no CVA tenderness Back/Spine/Pelvis: Back: no CVA tenderness Skin: General skin exam: normal color Rashes: no rashes Other: Right lateral foot has a 3 cm abrasion Neuro: General: patient oriented x3, moves all extremities, no meningeal signs, no focal motor deficits and CN's II-XI intact bilaterally Speech: normal speech Extrem: General: normal to inspection and no clubbing, cyanosis or edema Psych: Mental Status: mental status grossly normal Affect: normal affect Attitude: cooperative Course Course Emergency Course: right foot abrasion Vital Signs Vital signs: Vital Signs Temperature 36.6 C 10/20/24 16:44 Pulse Rate 74 10/20/24 16:44 Respiratory Rate 18 10/20/24 16:44 Blood Pressure 120/82 10/20/24 16:44 Pulse Oximetry 95 10/20/24 16:44 Oxygen Delivery Room Air 10/20/24 16:44 Temperature 36.6 C 10/20/24 16:44 Pulse Rate 74 10/20/24 16:44 Respiratory Rate 18 10/20/24 16:44 Blood Pressure 120/82 10/20/24 16:44 Pulse Oximetry 95 10/20/24 16:44 Oxygen Delivery Room Air 10/20/24 16:44 MDM - Extremity Injury (Lower) MDM Narrative Medical decision making narrative: right foot abrasion Differential Diagnosis Differential diagnosis: Likely other ( laceration) Discharge Plan Discharge Clinical Impression: Abrasion of foot, right Patient Disposition: Home Condition: Stable Instructions: Antibiotic Form, Abrasion (ED) Patient Language: Guyanese Prescriptions: No Action cephalexin 500 mg capsule 500 mg PO Q6H 7 Days Qty: 28 0RF levothyroxine 200 mcg tablet 200 mcg PO DAILY amoxicillin-pot clavulanate 875-125 mg tablet 1 tablet PO Q12H 10 Days Qty: 20 0RF prednisone 20 mg tablet 20 mg PO BID 5 Days Qty: 10 0RF ibuprofen 200 mg capsule 200 mg PO Q6H PRN (Reason: Pain) Follow-up/Referrals: Greyson Etienne MD [Primary Care Provider] - Time of Disposition: 17:12
[2024-10-20] MEDS: TETANUS,DIPHTHERIA,AC PERTUSSIS ADULT 0.5 ML (ADACEL) IM (17:19)
== END 2024-10-20 17:35 | disposition home or self-care (01) ==
PROVIDERS: Emergency Provider Internal Medicine Critical Care Medicine; PCP Internal Medicine
DX: S90.811A Abrasion, right foot, initial encounter (principal); E03.9 Hypothyroidism, unspecified; Z87.891 Personal history of nicotine dependence; Z23 Encounter for immunization; W22.8XXA Striking against or struck by other objects, initial encounter
CPT/HCPCS: 90471; 90715; 99282

== ENCOUNTER 2024-11-12 06:06 | Emergency (ER) | payer OTHER, SELFPAY ==
--- OUTSIDE RECORDS SUMMARY | 2024-11-12 06:08 | XMS_ITS | Clinical Summary ---
Author Organization [facility] Address [facility] [place] [address] Care Team Providers Care Personal Insurance Advisor Name Role Phone Unavailable Primary Care Provider [...] Comments Blood Pressure 111/75 05/02/2015 3:44 PM MANAGEMENT COORDINATOR Pulse - - Temperature - - Respiratory Rate - - Oxygen Saturation - - Inhaled Oxygen Concentration - - Weight 122.5 kg (270 lb) 05/02/2015 3:44 PM MANAGEMENT COORDINATOR Height 154.9 cm (5' 1) 05/02/2015 3:44 PM MANAGEMENT COORDINATOR Body Mass Index 51.02 05/02/2015 3:44 PM MANAGEMENT COORDINATOR Plan of Treatment Health Maintenance Due Date [...] Screening with HPV 10/09/2003 Mammogram Screening 2013 Pneumococcal Vaccine: 50+ Ye ars (1 of 1 - PCV) 10/09/2023 Zoster Vaccines (1 of 2) 10/09/2023 COVID-19 Vaccine ( - 2023-2 5 season) 2024 Meningococcal B Vaccine Aged Out No l onger eligible based on patient's age to complete this topic Meningococcal Vaccine Aged Out No harpreet fabi eligible based on patient's age to complete this topic RSV Immunizations Under 20 Months Aged Out No longer eligible based on patient's age to complete this topic
[2024-11-12 06:09] VITALS: BP 154/95; PULSE 56; RESP 15; TEMP 37; O2SAT 98
--- NOTE | 2024-11-12 06:17 | ED.SKABFB ---
HPI - Skin/Abscess/Foreign Bdy General Chief complaint: Skin/Abscess/Foreign Body Stated complaint: poison latonya to face Time Seen by Provider: 11/12/24 06:16 Source: patient Mode of arrival: ambulatory Limitations: no limitations History of Present Illness HPI narrative: this is a 49-year-old female with a history of hypothyroidism presents after she got exposed to poison latonya and has some rash around the left but not affecting the eye itself, very itchy and hives around her right arm with no shortness of breath no fever chills no nausea vomiting. complaint: rash Onset (ago): day(s) Location: generalized Severity: mild Related Data Home Medications ?Medication ?Instructions ?Recorded ?Confirmed ?Last Taken ?Type ibuprofen 200 mg capsule 200 mg PO Q6H PRN Pain 01/07/22 12/20/22 Unknown History levothyroxine 200 mcg tablet 200 mcg PO DAILY 12/20/22 12/20/22 Unknown History Allergies Allergy/AdvReac Type Severity Reaction Status Date / Time doxycycline Allergy Mild Other Verified 11/12/24 06:13 duloxetine Allergy Mild Nausea Verified 11/12/24 06:13 pregabalin (From Lyrica) Allergy Mild Other Verified 11/12/24 06:13 sulfamethoxazole (From Allergy Mild Other Verified 11/12/24 06:13 Bactrim) topiramate Allergy Mild Dizziness Verified 11/12/24 06:13 trimethoprim (From Bactrim) Allergy Mild Other Verified 11/12/24 06:13 Review of Systems Review of Systems: All systems reviewed & are unremarkable except as noted in HPI and below PMFSH Past Medical History Medical History Hypothyroidism (08/06/12) Social History Social History Smoking packs per day: 1 Smoking cigarettes per day: 20.0 Years smoked: 31 Smoking pack-years: 31.00 Smoking status: Former smoker Smoking end date: 07/27/19 Exam Const: General: healthy appearing Nutritional Appearance: well nourished Orientation/consciousness: patient oriented x3 Limitations: no limitations HENMT: Other: Urticarial rash around the left Eyes: Pupils: Equal, round and reactive pupils present EOM: EOMs intact bilaterally Neck: Neck: normal visual inspection, no lymphadenopathy and no meningeal signs Chest: Chest palpation & inspection: normal inspection of the chest Resp: Effort & Inspection: normal respiratory effort Auscultation: clear to auscultation bilaterally Cardio: Rate: regular rate Rhythm: regular rhythm GI: Auscultation: normal bowel sounds Skin: Other: urticarial rash around the left eye and around her arms and abdomen Course Course Emergency Course: patient with urticaria rash exposure to poison latonya with itching, received 80mg IM injection of Depo-Medrol. Vital Signs Vital signs: Vital Signs Temperature 37.0 C 11/12/24 06:09 Pulse Rate 56 L 11/12/24 06:09 Respiratory Rate 15 11/12/24 06:09 Blood Pressure 154/95 H 11/12/24 06:09 Pulse Oximetry 98 11/12/24 06:09 Oxygen Delivery Room Air 11/12/24 06:09 Temperature 37.0 C 11/12/24 06:09 Pulse Rate 56 L 11/12/24 06:09 Respiratory Rate 15 11/12/24 06:09 Blood Pressure 154/95 H 11/12/24 06:09 Pulse Oximetry 98 11/12/24 06:09 Oxygen Delivery Room Air 11/12/24 06:09 Critical Care Time Critical Care Time Critical Care Time: No Discharge Plan Discharge Clinical Impression: Poison latonya Patient Disposition: Home Condition: Stable Instructions: Antibiotic Form, Poison Latonya (ED) Additional Instructions: advised patient to take medication as prescribed and can use Zyrtec [id number] daily x1 week, follow with primary care if symptoms persist or worsen. Patient Language: Argentine Prescriptions: New triamcinolone acetonide 0.1 % ointment 1 applic topical TID 7 Days Qty: 15 0RF prednisone 20 mg tablet 20 mg PO DAILY 5 Days Qty: 5 0RF No Action cephalexin 500 mg capsule 500 mg PO Q6H 7 Days Qty: 28 0RF levothyroxine 200 mcg tablet 200 mcg PO DAILY amoxicillin-pot clavulanate 875-125 mg tablet 1 tablet PO Q12H 10 Days Qty: 20 0RF prednisone 20 mg tablet 20 mg PO BID 5 Days Qty: 10 0RF ibuprofen 200 mg capsule 200 mg PO Q6H PRN (Reason: Pain) Follow-up/Referrals: Greyson Etienne MD [Primary Care Provider] - Time of Disposition: 06:24
[2024-11-12] MEDS: methylPREDNISolone ACETATE 40 MG/ML VIAL 80 MG IM (06:22)
[2024-11-12 06:43] VITALS: BP 128/79; PULSE 72; RESP 18; O2SAT 97
== END 2024-11-12 06:43 | disposition home or self-care (01) ==
LOC: CHSED 06:23
PROVIDERS: Emergency Provider Emergency Medicine; PCP Internal Medicine
DX: L23.7 Allergic contact dermatitis due to plants, except food (principal); E03.9 Hypothyroidism, unspecified; Z87.891 Personal history of nicotine dependence
CPT/HCPCS: 96372; 99283; J1010

== ENCOUNTER 2025-02-24 13:07 | Outpatient (NON) | payer OTHER, SELFPAY ==
--- OUTSIDE RECORDS SUMMARY | 2025-02-24 14:56 | XMS_ITS | Clinical Summary ---
Author Organization [facility] Address [facility] [place] [address] Care Team Providers Care Analytics Consultant Name Role Phone Unavailable Primary Care Provider [...] Comments Blood Pressure 111/75 05/02/2015 3:44 PM EVENTS ADMINISTRATIVE ASSISTANT Pulse - - Temperature - - Respiratory Rate - - Oxygen Saturation - - Inhaled Oxygen Concentration - - Weight 122.5 kg (270 lb) 05/02/2015 3:44 PM EVENTS ADMINISTRATIVE ASSISTANT Height 154.9 cm (5' 1) 05/02/2015 3:44 PM EVENTS ADMINISTRATIVE ASSISTANT Body Mass Index 51.02 05/02/2015 3:44 PM EVENTS ADMINISTRATIVE ASSISTANT Plan of Treatment Health Maintenance Due Date [...] COVID-19 Vaccine ( - 2023-2 5 season) 2025 Influenza Adult (#1) 2025 Meningococcal B Vaccine Aged Out No l onger eligible based on patient's age to complete this topic Meningococcal Vaccine Aged Out No harpreet fabi eligible based on patient's age to complete this topic RSV Immunizations Under 20 Months Aged Out No longer eligible based on patient's age to complete this topic
== END 2025-02-24 13:08 | disposition home or self-care (01) ==
LOC: ANHGOSHLAB 13:08
PROVIDERS: PCP Internal Medicine; Visit Provider Otolaryngology
DX: H60.62 Unspecified chronic otitis externa, left ear (principal)
CPT/HCPCS: 87101